=== PATIENT | male | born 1965 ===

== ENCOUNTER 2018-07-27 18:03 | Emergency (ER) | payer MEDICAID ==
[2018-07-27 18:03] VITALS: BMI 29.5
[2018-07-27 18:40] VITALS: TEMP 97.7
--- NOTE | 2018-07-27 19:09 | ED PDOC ---
Lower Extremity Pain/Injury Time Seen by Provider: 07/27/18 18:53 Chief Complaint (Nursing): Lower Extremity Problem/Injury Chief Complaint (Provider): leg pain History Per: Patient History/Exam Limitations: no limitations Onset/Duration Of Symptoms: Days (1 month) Additional Complaint(s): Pt. with leg swelling b/l for 1 month. No pain, weakness, headaches, dizziness, chest pain, dyspnea, long distance travel, or hormone tx. Past Medical History Reviewed: Nursing Documentation, Vital Signs Vital Signs: Last Vital Signs Temp 97.7 F 07/27/18 18:35 Pulse 88 07/27/18 18:35 Resp 18 07/27/18 18:35 BP 168/87 H 07/27/18 18:35 Pulse Ox 98 07/27/18 18:35 - Medical History PMH: HTN, Hypercholesterolemia Denies: HIV, Chronic Kidney Disease Other PMH: on elaquis for his heart - Surgical History Surgical History: Endoscopy (Peptic Ulcer) - Family History Family History: States: Unknown Family Hx - Home Medications Home Medications: Ambulatory Orders Medication Instructions Recorded Apixaban [Eliquis] 5 mg PO Q12 #60 tab 03/31/18 Atorvastatin [Lipitor] 40 mg PO DAILY #30 tab 03/31/18 Metoprolol Succinate XL [Toprol XL] 50 mg PO Q12 #60 tab 03/31/18 Ramipril [Altace] 10 mg PO DAILY #30 cap 03/31/18 amLODIPine [Norvasc] 5 mg PO BID #30 tab 03/31/18 cloNIDine [Catapres] 0.1 mg PO Q12 #60 tab 03/31/18 - Allergies Allergies/Adverse Reactions: Allergies Allergy/AdvReac Type Severity Reaction Status Date / Time No Known Allergies Allergy Verified 07/27/18 18:40 Review of Systems ROS Statement: Except As Marked, All Systems Reviewed And Found Negative Cardiovascular: Positive for: Edema (pedal b/l) Physical Exam - Reviewed Nursing Documentation Reviewed: Yes Vital Signs Reviewed: Yes - Physical Exam Appears: Positive for: Non-toxic, No Acute Distress Head Exam: Positive for: ATRAUMATIC, NORMAL INSPECTION, NORMOCEPHALIC Skin: Positive for: Normal Color, Warm, DRY Eye Exam: Positive for: EOMI, Normal appearance, PERRL ENT: Positive for: Normal ENT Inspection Neck: Positive for: Normal, Painless ROM Cardiovascular/Chest: Positive for: Regular Rate, Rhythm Respiratory: Positive for: CNT, Normal Breath Sounds Gastrointestinal/Abdominal: Positive for: Normal Exam, Soft. Negative for: Tenderness Back: Positive for: Normal Inspection. Negative for: L CVA Tenderness, R CVA Tenderness Extremity: Positive for: Normal ROM, Pedal Edema (b/l 1+ trace pitting). N egative for: Tenderness, Calf Tenderness Neurologic/Psych: Positive for: Alert, Oriented - Laboratory Results Result Diagrams: 07/27/18 19:59 07/27/18 19:59 Lab Results: 15.3wbc - ECG O2 Sat by Pulse Oximetry: 98 Pulse Ox Interpretation: Normal - CT Scan/US us Other Rad Studies (CT/US): Radiology Report Reviewed - Progress ED Course And Treament: 2213: No acute. AAOx3. Pain free. Tolerated PO. Fu with pcp. WBC elevated, but no acute infectious source. Disposition - Clinical Impression Clinical Impression: Leg edema - Patient ED Disposition Is Patient to be Admitted: No Counseled Patient/Family Regarding: Studies Performed, Diagnosis, Need For Followup - Disposition Referrals: [facility] [Outside] - 07/28/18 Disposition: Routine/Home Disposition Time: 22:14 Condition: STABLE Additional Instructions: Return if not better in 3 days. Instructions: Dependent Edema (DC)
[2018-07-27 20:46] LABS: BASO # 0.1 K/uL (0.0-0.2); EOS # 0.5 K/uL (0.0-0.7); HEMOGLOBIN 16.4 g/dL (12.0-18.0); LYMPH # 3.6 K/uL (1.0-4.3); LYMPH % 23.5 % (20.0-40.0); MEAN CELL VOLUME 90.9 fl (80.0-94.0); MEAN CORPUSCULAR HEMOGLOBIN 29.7 pg (27.0-31.0); MEAN CORPUSCULAR HGB CONC 32.7 g/dL (33.0-37.0); MEAN PLATELET VOLUME 8.9 fl (7.2-11.7); MONO # 1.3 K/uL (0.0-0.8); MONO % 8.6 % (0.0-10.0); NEUT # 9.8 K/uL (1.8-7.0); NEUT % 63.9 % (50.0-75.0); RBC 5.52 Mil/uL (4.40-5.90); RED CELL DISTRIBUTION WIDTH 14.9 % (11.5-14.5); WHITE BLOOD COUNT 15.3 K/uL (4.8-10.8)
[2018-07-27 20:48] LABS: INR 1.1; PROTHROMBIN TIME 12.8 Seconds (9.8-13.1)
[2018-07-27 20:51] LABS: PARTIAL THROMBOPLASTIN TIME 42.2 Seconds (25.6-37.1)
[2018-07-27 20:53] LABS: ALB/GLOB RATIO 1.3 (1.0-2.1); ALT/SGPT 52 U/L (21-72); AST/SGOT 36 U/L (17-59); BLOOD UREA NITROGEN 26 mg/dl (9-20); CALCIUM 9.2 mg/dL (8.4-10.2); GFR NON-AFRICAN AMERICAN 58
[2018-07-27 21:04] LABS: B-TYPE NATRIURETIC PEPTIDE 584 pg/ml (0-900)
[2018-07-27 22:30] VITALS: BP 148/82; PULSE 85; RESP 16; O2SAT 99
--- NOTE | 2018-07-28 10:01 | US ---
Date of service: It 07/27/2018 PROCEDURE: Bilateral lower extremity venous duplex Doppler. HISTORY: r/o dvt COMPARISON: None available. TECHNIQUE: Bilateral common femoral, superficial femoral, popliteal and posterior tibial veins were evaluated. Flow was assessed with color Doppler, compressibility, assessment of phasic flow and augmentation response. FINDINGS: COMMON FEMORAL VEIN: Right CFV: Unremarkable. Left CFV: Unremarkable. SUPERFICIAL FEMORAL VEIN: Right SFV: Unremarkable. Left SFV: Unremarkable. POPLITEAL VEIN: Right Popliteal: Unremarkable. Left Popliteal: Unremarkable. POSTERIOR TIBIAL VEIN: Right PTV: Unremarkable. Left PTV: Unremarkable. OTHER FINDINGS: None. IMPRESSION: No evidence of deep venous thrombosis. The preliminary findings for this examination were reported by [facility] at 10:25 p.m. on 07/27/2018. There is concurrence of this report with the preliminary findings.
== END 2018-07-27 22:29 | disposition home or self-care (01) ==
LOC: H.ER 18:03
DX: R60.0 Localized edema (principal); I10 Essential (primary) hypertension; Z79.01 Long term (current) use of anticoagulants; E78.00 Pure hypercholesterolemia, unspecified

== ENCOUNTER 2018-08-13 09:44 | Emergency (ER) | payer MEDICAID, OTHER ==
[2018-08-13 09:45] VITALS: BMI 29.5
[2018-08-13 09:51] VITALS: O2SAT 98
--- NOTE | 2018-08-13 11:14 | ED PDOC ---
Lower Extremity Pain/Injury Time Seen by Provider: 08/13/18 10:12 Chief Complaint (Nursing): Lower Extremity Problem/Injury Chief Complaint (Provider): RLE swelling History Per: Patient History/Exam Limitations: no limitations Additional Complaint(s): Pt reports swelling to RLE X 2 weeks, was seen in this ED and by PMD who changed his HTN med but swelling continues, worse when upright. Denies recent travel, calf pain, CP, SOB, trauma, paresthesias, weakness. Past Medical History Reviewed: Nursing Documentation, Vital Signs Vital Signs: Last Vital Signs Temp 97.6 F 08/13/18 09:51 Pulse 82 08/13/18 09:51 Resp 20 08/13/18 09:51 BP 150/110 H 08/13/18 09:51 Pulse Ox 98 08/13/18 09:51 - Medical History PMH: HTN, Hypercholesterolemia Denies: HIV, Chronic Kidney Disease - Surgical History Surgical History: Endoscopy (Peptic Ulcer) - Family History Family History: States: Unknown Family Hx - Social History Current smoker - smoking cessation education provided: No Alcohol: None - Home Medications Home Medications: Ambulatory Orders Medication Instructions Recorded Apixaban [Eliquis] 5 mg PO Q12 #60 tab 03/31/18 Atorvastatin [Lipitor] 40 mg PO DAILY #30 tab 03/31/18 Metoprolol Succinate XL [Toprol XL] 50 mg PO Q12 #60 tab 03/31/18 Ramipril [Altace] 10 mg PO DAILY #30 cap 03/31/18 amLODIPine [Norvasc] 5 mg PO BID #30 tab 03/31/18 cloNIDine [Catapres] 0.1 mg PO Q12 #60 tab 03/31/18 - Allergies Allergies/Adverse Reactions: Allergies Allergy/AdvReac Type Severity Reaction Status Date / Time No Known Allergies Allergy Verified 07/27/18 18:40 Wells Criteria for PE - Wells Criteria for Pulmonary Embolism Clinical Signs and Symptoms of DVT: Yes P.E is #1 Diagnosis, or Equally Likely: No Heart Rate >100: No Immobilization at least 3 days;Surgery previous 4 weeks: No Previous, objectively diagnosed PE or DVT: No Hemoptysis: No Malignancy w/treatment within 6 months, or palliative: No Total Score: 3 Review of Systems Constitutional: Negative for: Fever, Chills Cardiovascular: Negative for: Chest Pain, Palpitations Respiratory: Negative for: Cough, Shortness of Breath Musculoskeletal: Negative for: Leg Pain Skin: Negative for: Rash, Lesions Neurological: Negative for: Weakness, Numbness, Headache Physical Exam - Reviewed Nursing Documentation Reviewed: Yes Vital Signs Reviewed: Yes - Physical Exam Appears: Positive for: Well, No Acute Distress Head Exam: Positive for: ATRAUMATIC, NORMAL INSPECTION Skin: Positive for: Normal Color, Warm, Dry Eye Exam: Positive for: Normal appearance, EOMI, PERRL Cardiovascular/Chest: Positive for: Regular Rate, Rhythm Respiratory: Positive for: Normal Breath Sounds. Negative for: Rales, Rhonchi, Wheezing Back: Positive for: Normal Inspection Extremity: Positive for: Normal ROM, Pedal Edema (Nonpitting), Capillary Refill (<2 sec), Swelling (RLE), Other (No erythema, no induration, no crepitus, no lesions). Negative for: Tenderness, Calf Tenderness, Deformity Neurologic/Psych: Positive for: Alert, Oriented. Negative for: Motor/Sensory Deficits - Laboratory Results Result Diagrams: 08/13/18 12:50 08/13/18 12:50 - ECG O2 Sat by Pulse Oximetry: 98 Medical Decision Making Medical Decision Makin yo male with RLE swelling. - labs - Doppler ultrasound Accession No. : [id number] Patient Name / ID : LUCERO NICHOLS / [id number] Exam Date : 08/13/2018 11:21:26 ( Approved ) Study Comment : Sex / Age : M / 53Y Creator : Kirk Roca MD Dictator : Kirk Roca MD [employer] Teacher : Industrial Analyst : Kirk Roca MD Approver2 : Report Date : 08/13/2018 12:16:09 My Comment : Date of service: 08/13/2018 PROCEDURE: Right lower extremity venous duplex Doppler. HISTORY: RLE swelling COMPARISON: None available. TECHNIQUE: Common femoral, superficial femoral, popliteal and posterior tibial veins were evaluated. Flow was assessed with color Doppler, compressibility, assessment of phasic flow and augmentation response. FINDINGS: COMMON FEMORAL VEIN: Unremarkable. SUPERFICIAL FEMORAL VEIN: Unremarkable. POPLITEAL VEIN: Unremarkable. POSTERIOR TIBIAL VEIN: Unremarkable. OTHER FINDINGS: None. IMPRESSION: No evidence of deep venous thrombosis in the right lower extremity. 16:00 BP remains elevated after Clonidine 0.2 mg PO, advised more medication to treat elebated BP, pt aware but wants to leave. States he will follow-up with his doctor. Disposition - Clinical Impression Clinical Impression: Leg edema, HTN (hypertension) - Disposition Referrals: Julio Cesar Mcallister MD [Family Provider] - Disposition: Routine/Home Disposition Time: 16:35 Condition: STABLE Instructions: High Blood Pressure in Adults, Swelling Forms: [employer] (South African) Print Language: BAHRAINI
--- NOTE | 2018-08-13 12:19 | US ---
Date of service: 08/13/2018 PROCEDURE: Right lower extremity venous duplex Doppler. HISTORY: RLE swelling COMPARISON: None available. TECHNIQUE: Common femoral, superficial femoral, popliteal and posterior tibial veins were evaluated. Flow was assessed with color Doppler, compressibility, assessment of phasic flow and augmentation response. FINDINGS: COMMON FEMORAL VEIN: Unremarkable. SUPERFICIAL FEMORAL VEIN: Unremarkable. POPLITEAL VEIN: Unremarkable. POSTERIOR TIBIAL VEIN: Unremarkable. OTHER FINDINGS: None. IMPRESSION: No evidence of deep venous thrombosis in the right lower extremity.
[2018-08-13 13:00] LABS: BASO # 0.2 K/uL (0.0-0.2); BASO % 1.3 % (0.0-2.0); EOS # 0.5 K/uL (0.0-0.7); EOS % 3.7 % (0.0-4.0); HEMOGLOBIN 15.4 g/dL (12.0-18.0); LYMPH # 3.1 K/uL (1.0-4.3); LYMPH % 24.5 % (20.0-40.0); MEAN CELL VOLUME 90.4 fl (80.0-94.0); MEAN CORPUSCULAR HEMOGLOBIN 29.7 pg (27.0-31.0); MEAN CORPUSCULAR HGB CONC 32.8 g/dL (33.0-37.0); MEAN PLATELET VOLUME 8.8 fl (7.2-11.7); MONO # 1.2 K/uL (0.0-0.8); MONO % 9.2 % (0.0-10.0); NEUT # 7.7 K/uL (1.8-7.0); NEUT % 61.3 % (50.0-75.0); NRBC % 0.1 % (0.0-0.0); RBC 5.19 Mil/uL (4.40-5.90); RED CELL DISTRIBUTION WIDTH 14.8 % (11.5-14.5); WHITE BLOOD COUNT 12.6 K/uL (4.8-10.8)
[2018-08-13 13:18] LABS: INR 1.1; PROTHROMBIN TIME 12.2 Seconds (9.8-13.1)
[2018-08-13 13:19] LABS: PARTIAL THROMBOPLASTIN TIME 36.5 Seconds (25.6-37.1)
[2018-08-13 13:28] LABS: ALB/GLOB RATIO 1.2 (1.0-2.1); ALBUMIN 3.6 g/dL (3.5-5.0); ALT/SGPT 50 U/L (21-72); AST/SGOT 35 U/L (17-59); BLOOD UREA NITROGEN 20 mg/dl (9-20); CALCIUM 9.1 mg/dL (8.4-10.2); GFR NON-AFRICAN AMERICAN > 60
[2018-08-13 14:58] VITALS: BP 155/138
[2018-08-13 16:22] VITALS: PULSE 74; RESP 18; TEMP 98.6
== END 2018-08-13 16:37 | disposition home or self-care (01) ==
LOC: H.ER 09:44
DX: R60.0 Localized edema (principal); I10 Essential (primary) hypertension; E78.00 Pure hypercholesterolemia, unspecified; Z79.01 Long term (current) use of anticoagulants

== ENCOUNTER 2018-08-27 08:11 | Emergency (ER) | payer MEDICAID, OTHER ==
[2018-08-27 08:17] VITALS: BMI 32.4
[2018-08-27 08:21] VITALS: O2SAT 98
--- NOTE | 2018-08-27 08:45 | ED PDOC ---
HPI: Hypertension/Hypotension Time Seen by Provider: 08/27/18 08:13 Chief Complaint (Nursing): High Blood Pressure Chief Complaint (Provider): High Blood Pressure History Per: Patient History/Exam Limitations: no limitations Onset/Duration Of Symptoms: Days Current Symptoms Are (Timing): Still Present Associated Symptoms: denies: Chest Pain, Dizziness, Blurred Vision, Headache Additional Complaint(s): Isiah Wu is a 53 year old male with a past medical history of hypertension, hypercholesterolemia, and cardiac arrhythmia who is presenting to the ED for evaluation of high blood pressure ongoing for one month. Patient states that he stopped taking Clonidine 1 month ago after which his blood pressure elevated. He also reports that he has a spasm to his left eye but denies any pain or vision change. He denies any chest pain, nausea, vomiting, diarrhea, dizziness, leg pain, or respiratory distress. No numbness, tingles, weakness. No headaches. Of note, patient states that he is also taking Losartan, Eliquis, and Metoprolol. He also admits that he had a stroke in March. PMD: Julio Cesar Reilly Past Medical History Reviewed: Historical Data, Nursing Documentation, Vital Signs Vital Signs: Last Vital Signs Temp 97.7 F 08/27/18 08:17 Pulse 83 08/27/18 08:17 Resp 20 08/27/18 08:17 BP 174/119 H 08/27/18 08:17 Pulse Ox 98 08/27/18 08:17 - Medical History PMH: Cardia Arrhythmia, HTN, Hypercholesterolemia Denies: HIV, Chronic Kidney Disease - Surgical History Surgical History: Endoscopy (Peptic Ulcer) - Family History Family History: States: Unknown Family Hx - Social History Current smoker - smoking cessation education provided: Yes Alcohol: Social Drugs: Denies - Home Medications Home Medications: Ambulatory Orders Medication Instructions Recorded Apixaban [Eliquis] 5 mg PO Q12 #60 tab 03/31/18 Atorvastatin [Lipitor] 40 mg PO DAILY #30 tab 03/31/18 Metoprolol Succinate XL [Toprol XL] 50 mg PO Q12 #60 tab 03/31/18 Ramipril [Altace] 10 mg PO DAILY #30 cap 03/31/18 amLODIPine [Norvasc] 5 mg PO BID #30 tab 03/31/18 cloNIDine [Catapres] 0.1 mg PO Q12 #60 tab 03/31/18 - Allergies Allergies/Adverse Reactions: Allergies Allergy/AdvReac Type Severity Reaction Status Date / Time No Known Allergies Allergy Verified 07/27/18 18:40 Review of Systems ROS Statement: Except As Marked, All Systems Reviewed And Found Negative Constitutional: Positive for: Other (high blood pressure ) Eyes: Positive for: Other (spasm to left eye ). Negative for: Pain, Vision Change Cardiovascular: Negative for: Chest Pain Respiratory: Negative for: Shortness of Breath Gastrointestinal: Negative for: Nausea, Vomiting, Diarrhea Musculoskeletal: Negative for: Leg Pain Neurological: Negative for: Headache, Dizziness Physical Exam - Reviewed Nursing Documentation Reviewed: Yes Vital Signs Reviewed: Yes - Physical Exam Appears: Positive for: Non-toxic, No Acute Distress Head Exam: Positive for: ATRAUMATIC, NORMAL INSPECTION, NORMOCEPHALIC Skin: Positive for: Normal Color, Warm, DRY Eye Exam: Positive for: EOMI, Normal appearance, PERRL ENT: Positive for: Normal ENT Inspection. Negative for: Nasal Congestion, Pharyngeal Erythema Neck: Positive for: Normal, Painless ROM, Supple Cardiovascular/Chest: Positive for: Regular Rate, Rhythm. Negative for: Murmur Respiratory: Positive for: Normal Breath Sounds. Negative for: Respiratory Distress Gastrointestinal/Abdominal: Positive for: Normal Exam, Soft. Negative for: Tenderness Back: Positive for: Normal Inspection. Negative for: L CVA Tenderness, R CVA Tenderness Extremity: Positive for: Normal ROM. Negative for: Tenderness, Deformity, Swelling Neurologic/Psych: Positive for: Alert, automobile service advisor II-XII, Oriented. Negative for: Motor/Sensory Deficits, Aphasia, Facial Droop - Laboratory Results Result Diagrams: 08/27/18 09:04 08/27/18 09:04 Lab Results: no acute; mild bun elevation. - ECG ECG: Positive for: Interpreted By Me, Viewed By Me Interpretation Of Abn EKG: afib with nonspecific changes same as old O2 Sat by Pulse Oximetry: 98 (RA) Pulse Ox Interpretation: Normal - Progress ED Course And Treament: 1028: Stable. AAOx3. Advised to fu with pcp and consider clonidine. Tolera nilo PO. No symptoms currently. Medical Decision Making Medical Decision Making: Time: 8:42 Plan: --EKG --BMP --Troponin --CBC --Coags --Catapres 0.2 mg PO - Scribe Attestation: Documented by Cuca Kimball, acting as a scribe for Surinder Holt MD. Provider Scribe Attestation: All medical record entries made by the Scribe were at my direction and personal ly dictated by me. I have reviewed the chart and agree that the record accurately reflects my personal performance of the history, physical exam, medical decision making, and the department course for this patient. I have also personally directed, reviewed, and agree with the discharge instructions and disposition. Disposition - Clinical Impression Clinical Impression: HTN (hypertension) - Patient ED Disposition Is Patient to be Admitted: No Counseled Patient/Family Regarding: Studies Performed, Diagnosis, Need For Followup - Disposition Referrals: [facility] [Outside] - 08/28/18 Disposition: Routine/Home Disposition Time: 10:30 Condition: STABLE Additional Instructions: Return if not better in 3 days. Instructions: High Blood Pressure in Adults Forms: [employer] (Kazakh) Print Language: NEPALI
--- NOTE | 2018-08-27 09:09 | CARD ---
APPROVED REPORT Date of service: 08/27/2018 EKG Measurement Heart [id number] <Conclusion> Atrial fibrillation ST & T wave abnormality, consider inferolateral ischemia Abnormal ECG
[2018-08-27 09:17] LABS: BASO # 0.1 K/uL (0.0-0.2); BASO % 0.8 % (0.0-2.0); EOS # 0.4 K/uL (0.0-0.7); EOS % 3.5 % (0.0-4.0); HEMOGLOBIN 16.3 g/dL (12.0-18.0); LYMPH # 2.1 K/uL (1.0-4.3); LYMPH % 16.9 % (20.0-40.0); MEAN CORPUSCULAR HEMOGLOBIN 29.9 pg (27.0-31.0); MEAN CORPUSCULAR HGB CONC 33.2 g/dL (33.0-37.0); MEAN PLATELET VOLUME 8.7 fl (7.2-11.7); MONO # 0.8 K/uL (0.0-0.8); MONO % 6.5 % (0.0-10.0); NEUT % 72.3 % (50.0-75.0); NRBC % 0.2 % (0.0-0.0); RBC 5.47 Mil/uL (4.40-5.90); RED CELL DISTRIBUTION WIDTH 14.1 % (11.5-14.5); WHITE BLOOD COUNT 12.4 K/uL (4.8-10.8)
[2018-08-27 09:26] LABS: BLOOD UREA NITROGEN 23 mg/dl (9-20); CALCIUM 9.6 mg/dL (8.4-10.2); GFR NON-AFRICAN AMERICAN 58; INR 1.2; PROTHROMBIN TIME 13.6 Seconds (9.8-13.1)
[2018-08-27 09:29] LABS: PARTIAL THROMBOPLASTIN TIME 41.5 Seconds (25.6-37.1)
[2018-08-27 11:04] VITALS: PULSE 63; RESP 21; TEMP 98.1
[2018-08-27 11:28] VITALS: BP 127/71
== END 2018-08-27 11:05 | disposition home or self-care (01) ==
LOC: H.ER 08:11
DX: I10 Essential (primary) hypertension (principal); F17.200 Nicotine dependence, unspecified, uncomplicated; E78.00 Pure hypercholesterolemia, unspecified; Z79.01 Long term (current) use of anticoagulants

== ENCOUNTER 2018-10-27 12:12 | Emergency (ER) | payer OTHER, MEDICAID ==
[2018-10-27 12:12] VITALS: BMI 32.4
[2018-10-27 12:29] VITALS: BP 126/88; PULSE 85; RESP 18; TEMP 98.5; O2SAT 100
--- NOTE | 2018-10-27 13:46 | ED PDOC ---
HPI: Skin/Bite Injury Time Seen by Provider: 10/27/18 12:41 Chief Complaint (Nursing): Abnormal Skin Integrity Chief Complaint (Provider): rash History Per: Patient History/Exam Limitations: no limitations Additional Complaint(s): 53 y/o M with hx of HTN, CVA s/p residual Right sided mild weakness and speech deficits, HL who presents with rash X 1 month. States that began having red patch on anterior left leg and has since developed several patches on left knee and left arm. Denies itching, fever, chills, drainage, exposure to new medications/soaps/lotions. He used talcum powder once last week but has otherwise not used anything to treat it. Past Medical History Vital Signs: Last Vital Signs Temp 98.5 F 10/27/18 12:26 Pulse 85 10/27/18 12:26 Resp 18 10/27/18 12:26 BP 126/88 10/27/18 12:26 Pulse Ox 100 10/27/18 12:26 - Medical History PMH: Cardia Arrhythmia, HTN, Hypercholesterolemia Denies: HIV, Chronic Kidney Disease - Surgical History Surgical History: Endoscopy (Peptic Ulcer) - Family History Family History: States: Unknown Family Hx - Home Medications Home Medications: Ambulatory Orders Medication Instructions Recorded Apixaban [Eliquis] 5 mg PO Q12 #60 tab 03/31/18 Atorvastatin [Lipitor] 40 mg PO DAILY #30 tab 03/31/18 Metoprolol Succinate XL [Toprol XL] 50 mg PO Q12 #60 tab 03/31/18 Ramipril [Altace] 10 mg PO DAILY #30 cap 03/31/18 amLODIPine [Norvasc] 5 mg PO BID #30 tab 03/31/18 cloNIDine [Catapres] 0.1 mg PO Q12 #60 tab 03/31/18 Clobetasol 0.05% [Temovate 0.05%] 1 applic TOP BID 14 Days tube 10/27/18 - Allergies Allergies/Adverse Reactions: Allergies Allergy/AdvReac Type Severity Reaction Status Date / Time No Known Allergies Allergy Verified 10/27/18 12:26 Review of Systems Constitutional: Negative for: Fever, Chills Skin: Positive for: Rash Physical Exam - Reviewed Nursing Documentation Reviewed: Yes Vital Signs Reviewed: Yes - Physical Exam Skin: Positive for: Rash (well demarcated mildly erythematous plaques with whitish/christensen scaling on anterior lower left leg and knee as well as extensor surface of left forearm and elbow. ) - ECG O2 Sat by Pulse Oximetry: 100 Medical Decision Making Medical Decision Making: Pt advised to use steroid cream as prescribed and to follow up with pMD or air technician for further treatment as needed. Pt demonstrated understanding and is stable for d/c home. Disposition - Clinical Impression Clinical Impression: Psoriasis - Patient ED Disposition Is Patient to be Admitted: No Counseled Patient/Family Regarding: Diagnosis, Need For Followup, Rx Given - Disposition Referrals: Julio Cesar Mcallister MD [Medical Doctor] - Disposition: Routine/Home Disposition Time: 13:45 Condition: STABLE Additional Instructions: Follow up with your primary care doctor or air technician for further treatment of psoriasis. Return to ER if you develop fevers, chills or worsening symptoms. Use topical cream for 2weeks twice daily. Prescriptions: Clobetasol 0.05% [Temovate 0.05%] 1 applic TOP BID 14 Days tube Instructions: Psoriasis (DC) Forms: [employer] (Occitan) Print Language: ETHIOPIAN
== END 2018-10-27 13:49 | disposition home or self-care (01) ==
LOC: H.ER 12:12
DX: L40.9 Psoriasis, unspecified (principal); I10 Essential (primary) hypertension; Z86.73 Personal history of transient ischemic attack (TIA), and cerebral infarction without residual deficits; Z79.01 Long term (current) use of anticoagulants; E78.00 Pure hypercholesterolemia, unspecified